=== PATIENT | male | born 1955 | race Caucasian/White ===

== ENCOUNTER 2017-07-10 18:33 | Emergency (ER) | payer OTHER ==
[2017-07-10] MEDS: ACETAMINOPHEN 325 MG TAB PO (20:16)
== END 2017-07-10 21:29 | disposition home or self-care (01) ==
LOC: FTE 18:33
DX: S01.01XA Laceration without foreign body of scalp, initial encounter (principal); W01.0XXA Fall on same level from slipping, tripping and stumbling without subsequent striking against object, initial encounter; Y92.9 Unspecified place or not applicable; Z87.891 Personal history of nicotine dependence
CPT/HCPCS: 12001; 99283-25

== ENCOUNTER 2017-07-12 12:10 | Emergency (ER) | payer OTHER ==
[2017-07-12] MEDS: DIPHTH/TET/ACEL PERTUSS (ADULT) 0.5 ML VIAL IM* (12:48)
== END 2017-07-12 13:10 | disposition home or self-care (01) ==
LOC: E/R 12:10 → FTE 13:10
DX: Z48.01 Encounter for change or removal of surgical wound dressing (principal)
CPT/HCPCS: 90471; 90715; 99283-25

== ENCOUNTER 2017-07-21 15:30 | Emergency (ER) | payer OTHER | END 2017-07-21 16:23 | disposition home or self-care (01) | LOC: E/R 16:23 | DX: Z48.02 Encounter for removal of sutures (principal) | CPT/HCPCS: 99281; Z7502 ==

== ENCOUNTER 2017-08-26 09:03 | Emergency (ER) | payer OTHER ==
[2017-08-26] MEDS: ONDANSETRON (ODT) 4 MG TAB ODT (10:09)
[2017-08-26] MEDS: HYDROCODONE/APAP (5/325) TAB PO (10:09)
== END 2017-08-26 11:49 | disposition home or self-care (01) ==
LOC: FTE 09:03
DX: S22.41XA Multiple fractures of ribs, right side, initial encounter for closed fracture (principal); W18.39XA Other fall on same level, initial encounter; Y92.9 Unspecified place or not applicable
CPT/HCPCS: 71045; 71100; 72072; 72100; 99284-25